=== PATIENT | male | born 1965 | race Caucasian/White ===

== ENCOUNTER 2024-10-18 17:52 | Inpatient (IN) | payer MEDICARE, OTHER ==
[~2024-10-18] VITALS: Ht 195.6 cm; Wt 158.8 kg
[~2024-10-18 17:52] MED LIST: AMLODIPINE BESY10 MG; AVAPRO300 MG; COLCRYS0.6 MG; FLOMAX0.4 MG PO; LOSARTAN POTASS25 MG PO; METHIMAZOLE5 MG PO; METOPROLOL SUCC25 MG PO; MICROZIDE12.5 MG; NEURONTIN300 MG PO; NEXIUM40 M1; TERAZOSIN HCL5 MG PO; ZYLOPRIM300 MG PO; [UNRECOGNIZED DRUG - OTHER] PO
[2024-10-18 18:44] LABS: BASOPHILS % 0.2 % (0.0-1.0); EOSINOPHILS % 0.2 % (0.0-6.0); HEMATOCRIT 41.3 % (38.2-49.6); HEMOGLOBIN 12.8 g/dL (14.0-18.0); LYMPHOCYTES # (AUTO) 1.5 (1.0-3.2); LYMPHOCYTES % 17.9 % (18.0-39.1); MEAN CORPUSCULAR HEMOGLOBIN 27.5 pg (28-32); MEAN CORPUSCULAR VOLUME 88.6 fL (81-99); MONOCYTES # (AUTO) 1.1 (0.2-0.8); NEUTROPHILS # (AUTO) 5.6 (2.1-6.9); NEUTROPHILS % 68.3 % (38.7-80.0); PLATELET COUNT 490 x10e3/uL (140-360); RED BLOOD COUNT 4.66 x10e6/uL (4.3-5.7); RED CELL DISTRIBUTION WIDTH 13.4 % (11.7-14.4)
[2024-10-18 19:02] LABS: ALANINE AMINOTRANSFERASE 48 IU/L (0-55); ALBUMIN 2.7 g/dL (3.5-5.0); ALBUMIN/GLOBULIN RATIO 0.5 (0.8-2.0); ALKALINE PHOSPHATASE 104 IU/L (40-150); ANION GAP 21.7 mmol/L (8-16); BLOOD UREA NITROGEN 9 mg/dL (7-26); BUN/CREATININE RATIO 8 (6-25); CALCIUM 10.1 mg/dL (8.4-10.2); CARBON DIOXIDE 19 mmol/L (22-29); CHLORIDE 94 mmol/L (98-107); CREATINE KINASE 27 IU/L (30-200); CREATININE, SERUM 1.11 mg/dL (0.72-1.25); EST GLOMERULAR FILTRATION RATE 76 ML/MIN (>=60); GLUCOSE 239 mg/dL (74-118); POTASSIUM 3.7 mmol/L (3.5-5.1); SODIUM 131 mmol/L (136-145); TOTAL PROTEIN 8.7 g/dL (6.5-8.1)
[2024-10-18 19:09] LABS: TROPONIN I < 0.001 ng/mL (0-0.300)
[2024-10-18] MEDS: ACETAMINOPHEN 325 MG TAB PO STA (19:17)
[2024-10-18] MEDS: SODIUM CHLORIDE 0.9% 1000ML 1,000 ML IV STA ×2 (19:17→19:18)
[2024-10-18 21:10] VITALS: PULSE 97; RESP 18; TEMP 99.1
[2024-10-18 21:21] LABS: CORONAVIRUS COVID-19 AG NEGATIVE (NEGATIVE); INFLUENZA A AG NEGATIVE (NEGATIVE); INFLUENZA B AG NEGATIVE (NEGATIVE)
[2024-10-18 21:27] LABS: STREPTOCOCCUS GRP A ANTIGEN NEGATIVE (NEGATIVE)
[2024-10-18 21:55] VITALS: BP 120/81; PULSE 92; RESP 18; TEMP 98.2; O2SAT 98
[2024-10-18 21:56] LABS: COLOR,URINE ORANGE (YELLOW); GLUCOSE, URINE 2+ (NEGATIVE); KETONES,URINE NEGATIVE (NEGATIVE); LEUKOCYTE ESTERASE ,URINE NEGATIVE (NEGATIVE); NITRITE,URINE NEGATIVE (NEGATIVE); PH,URINE 7.5 (5 - 7); PROTEIN,URINE DIPSTICK 2+ (NEGATIVE); URINE UROBILINOGEN >=8 mg/dL (0.2 - 1)
[2024-10-18 21:57] LABS: BILIRUBIN,URINE 1+ (NEGATIVE); CLARITY,URINE SL CLOUDY (CLEAR)
[2024-10-18 22:00] VITALS: BP 120/81; PULSE 92; RESP 18; TEMP 98.2; O2SAT 98
[2024-10-18 22:19] LABS: BACTERIA,URINE MODERATE /HPF; EPITHELIAL CELLS,URINE FEW /LPF; WBC,URINE (MAN) >50 /HPF (0-5)
[2024-10-18 22:20] LABS: TRANSITIONAL EPI CELLS,URINE FEW
[2024-10-18] MEDS ORDERED: GLYBURIDE-METF1 EAC1 PO (23:35)
[2024-10-18] MEDS ORDERED: COLCHICINE0.6 M1 PO (23:40)
[2024-10-18] MEDS ORDERED: MONTELUKAST SOD10 MG PO (23:42)
[2024-10-18] MEDS ORDERED: NEXIUM40 MG PO (23:46)
[2024-10-19] VITALS (12 sets, daily range): BP systolic 116–136; BP diastolic 73–82; PULSE 88–106; RESP 16–19; TEMP 97.5–98.7; O2SAT 95–99
[2024-10-19] MEDS: SODIUM CHLORIDE 0.9% 1000ML 1,000 ML IV SCH (00:41)
[2024-10-19] MEDS: ONDANSETRON HCL INJ 2MG/ML 2ML 2 MG/ML VIAL IV PRN (00:43)
[2024-10-19] MEDS: Morphine 4mg INJECTION 4 MG/ML INJ IV PRN (00:43)
[2024-10-19 07:25] LABS: BASOPHILS % 0.2 % (0.0-1.0); EOSINOPHILS % 0.1 % (0.0-6.0); HEMATOCRIT 36.5 % (38.2-49.6); HEMOGLOBIN 11.1 g/dL (14.0-18.0); LYMPHOCYTES # (AUTO) 1.3 (1.0-3.2); LYMPHOCYTES % 14.4 % (18.0-39.1); MEAN CORPUSCULAR HEMOGLOBIN 27.5 pg (28-32); MEAN CORPUSCULAR HGB CONC 30.4 g/dL (31-35); MEAN CORPUSCULAR VOLUME 90.3 fL (81-99); MONOCYTES # (AUTO) 1.1 (0.2-0.8); MONOCYTES % 12.5 % (4.4-11.3); NEUTROPHILS # (AUTO) 6.6 (2.1-6.9); NEUTROPHILS % 72.5 % (38.7-80.0); PLATELET COUNT 435 x10e3/uL (140-360); RED BLOOD COUNT 4.04 x10e6/uL (4.3-5.7); RED CELL DISTRIBUTION WIDTH 13.4 % (11.7-14.4); WHITE BLOOD COUNT 9.11 x10e3/uL (4.8-10.8)
[2024-10-19 07:41] LABS: ALBUMIN 2.3 g/dL (3.5-5.0); ALBUMIN/GLOBULIN RATIO 0.5 (0.8-2.0); ANION GAP 17.9 mmol/L (8-16); BILIRUBIN,TOTAL 2.1 mg/dL (0.2-1.2); CALCIUM 9.4 mg/dL (8.4-10.2); CREATININE, SERUM 0.94 mg/dL (0.72-1.25); POTASSIUM 3.9 mmol/L (3.5-5.1); TOTAL PROTEIN 7.3 g/dL (6.5-8.1)
[2024-10-19 07:49] LABS: TROPONIN I 0.004 ng/mL (0-0.300)
[2024-10-19 09:17] LABS: CREATINE KINASE 48 IU/L (30-200); TROPONIN I < 0.001 ng/mL (0-0.300)
[2024-10-19] MEDS: SENNA-S TABLET PO SCH (11:00)
[2024-10-19] MEDS ORDERED: HYDRALAZINE HCL 20 MG/ML VIAL IV PRN (11:00)
[2024-10-19] MEDS ORDERED: ONDANSETRON HCL INJ 2MG/ML 2ML 2 MG/ML VIAL IV PRN (11:00)
[2024-10-19] MEDS ORDERED: DEXTROSE 50% SYRINGE 50 ML IV PRN (11:15)
[2024-10-19] MEDS: INSULIN LISPRO 100 UNIT/1 ML 3ML VIAL SQ SCH (11:30)
[2024-10-19] MEDS: INSULIN GLARGINE 100 UNITS/ML VIAL SQ ONE (12:08)
[2024-10-19] MEDS: ACETAMINOPHEN 325 MG TAB PO PRN (12:35)
[2024-10-19] MEDS: Vancomycin IV 1 GM in SODIUM CHLORIDE 0.9% 250ML 250 ML IV SCH (12:36)
[2024-10-19] MEDS ORDERED: IOPAMIDOL 370 MG/ML 100 ML INFUS..BTL INJ ONE (14:50)
[2024-10-19] MEDS ORDERED: SODIUM CHLORIDE 0.9% 100 ML ONE (14:50)
[2024-10-19] MEDS: GABAPENTIN 300 MG CAP PO SCH (15:36)
[2024-10-19] MEDS: TERAZOSIN HCL 5 MG CAP PO SCH (17:09)
[2024-10-19] MEDS: ENOXAPARIN SOD INJ 40 MG/0.4 ML SYR SC SCH (17:10)
[2024-10-19] MEDS: TAMSULOSIN HCL 0.4 MG CAP PO SCH (17:10)
[2024-10-19] MEDS: METHIMAZOLE 5 MG TAB PO SCH (20:17)
[2024-10-19] MEDS: INSULIN GLARGINE 100 UNITS/ML VIAL SQ SCH (21:00)
[2024-10-20] VITALS (11 sets, daily range): BP systolic 111–127; BP diastolic 60–82; PULSE 60–98; RESP 18–22; TEMP 97.5–98.1; O2SAT 96–98
[2024-10-20 06:40] LABS: BASOPHILS % 0.3 % (0.0-1.0); EOSINOPHILS # (AUTO) 0.1 (0.0-0.4); EOSINOPHILS % 1.1 % (0.0-6.0); HEMATOCRIT 33.4 % (38.2-49.6); LYMPHOCYTES # (AUTO) 1.4 (1.0-3.2); LYMPHOCYTES % 19.8 % (18.0-39.1); MEAN CORPUSCULAR HEMOGLOBIN 27.3 pg (28-32); MEAN CORPUSCULAR HGB CONC 29.9 g/dL (31-35); MEAN CORPUSCULAR VOLUME 91.3 fL (81-99); MONOCYTES # (AUTO) 0.7 (0.2-0.8); MONOCYTES % 9.7 % (4.4-11.3); NEUTROPHILS # (AUTO) 4.8 (2.1-6.9); NEUTROPHILS % 68.7 % (38.7-80.0); PLATELET COUNT 379 x10e3/uL (140-360); RED BLOOD COUNT 3.66 x10e6/uL (4.3-5.7); RED CELL DISTRIBUTION WIDTH 13.5 % (11.7-14.4); WHITE BLOOD COUNT 7.03 x10e3/uL (4.8-10.8)
[2024-10-20 07:17] LABS: ALBUMIN 2.1 g/dL (3.5-5.0); ALBUMIN/GLOBULIN RATIO 0.4 (0.8-2.0); ANION GAP 15.6 mmol/L (8-16); BILIRUBIN,TOTAL 1.4 mg/dL (0.2-1.2); CALCIUM 9.4 mg/dL (8.4-10.2); CREATININE, SERUM 0.85 mg/dL (0.72-1.25); POTASSIUM 3.6 mmol/L (3.5-5.1); TOTAL PROTEIN 6.9 g/dL (6.5-8.1)
[2024-10-20 07:36] LABS: THYROID STIMULATING HORMONE 0.004 uIU/mL (0.350-4.940)
[2024-10-20] MEDS: COLCHICINE 0.6 MG TAB PO SCH (08:55)
[2024-10-20] MEDS: PANTOPRAZOLE SOD 40 MG TABEC PO SCH (08:56)
[2024-10-20] MEDS: LOSARTAN POTASSIUM 25 MG TAB PO SCH (08:56)
[2024-10-20] MEDS: ALLOPURINOL 300 MG TAB PO SCH (08:56)
[2024-10-20] MEDS: MONTELUKAST SODIUM 10 MG TAB PO SCH (08:56)
[2024-10-20] MEDS: METOPROLOL SUCCINATE 25 MG TAB XL PO SCH (08:58)
[2024-10-20] MEDS: HYDROCODONE/APAP 10MG-325MG TAB PO PRN (23:16)
[2024-10-21] VITALS (10 sets, daily range): BP systolic 96–114; BP diastolic 56–75; PULSE 77–99; RESP 18–22; TEMP 97.7–98.4; O2SAT 96–100
[2024-10-21] MEDS: SODIUM CHLORIDE 0.9% 250ML 250 ML ONE (07:58)
[2024-10-21] MEDS: LIDOCAINE HCL 1% 2 ML AMP INJ ONE (17:31)
[2024-10-22] VITALS (10 sets, daily range): BP systolic 119–132; BP diastolic 71–77; PULSE 75–96; RESP 18–22; TEMP 97.7–98.2; O2SAT 94–98
[2024-10-22 08:57] LABS: BASOPHILS % 0.5 % (0.0-1.0); EOSINOPHILS # (AUTO) 0.1 (0.0-0.4); EOSINOPHILS % 2.3 % (0.0-6.0); HEMATOCRIT 32.4 % (38.2-49.6); HEMOGLOBIN 9.6 g/dL (14.0-18.0); LYMPHOCYTES # (AUTO) 1.1 (1.0-3.2); LYMPHOCYTES % 24.3 % (18.0-39.1); MEAN CORPUSCULAR HEMOGLOBIN 26.9 pg (28-32); MEAN CORPUSCULAR HGB CONC 29.6 g/dL (31-35); MEAN CORPUSCULAR VOLUME 90.8 fL (81-99); MONOCYTES # (AUTO) 0.5 (0.2-0.8); NEUTROPHILS # (AUTO) 2.7 (2.1-6.9); NEUTROPHILS % 61.7 % (38.7-80.0); PLATELET COUNT 373 x10e3/uL (140-360); RED BLOOD COUNT 3.57 x10e6/uL (4.3-5.7); RED CELL DISTRIBUTION WIDTH 13.7 % (11.7-14.4); WHITE BLOOD COUNT 4.36 x10e3/uL (4.8-10.8)
[2024-10-22 09:24] LABS: ANION GAP 14.6 mmol/L (8-16); CALCIUM 9.2 mg/dL (8.4-10.2); CREATININE, SERUM 0.78 mg/dL (0.72-1.25); POTASSIUM 3.6 mmol/L (3.5-5.1)
[2024-10-23] VITALS (10 sets, daily range): BP systolic 113–136; BP diastolic 60–85; PULSE 72–90; RESP 18–20; TEMP 97.2–98.6; O2SAT 95–98
[2024-10-23 05:40] LABS: BASOPHILS % 0.2 % (0.0-1.0); EOSINOPHILS # (AUTO) 0.2 (0.0-0.4); EOSINOPHILS % 3.4 % (0.0-6.0); HEMATOCRIT 32.9 % (38.2-49.6); HEMOGLOBIN 10.5 g/dL (14.0-18.0); LYMPHOCYTES # (AUTO) 1.1 (1.0-3.2); LYMPHOCYTES % 23.4 % (18.0-39.1); MEAN CORPUSCULAR HEMOGLOBIN 27.3 pg (28-32); MEAN CORPUSCULAR HGB CONC 31.9 g/dL (31-35); MEAN CORPUSCULAR VOLUME 85.5 fL (81-99); MONOCYTES # (AUTO) 0.6 (0.2-0.8); MONOCYTES % 12.4 % (4.4-11.3); NEUTROPHILS # (AUTO) 2.9 (2.1-6.9); NEUTROPHILS % 60.4 % (38.7-80.0); PLATELET COUNT 370 x10e3/uL (140-360); RED BLOOD COUNT 3.85 x10e6/uL (4.3-5.7); RED CELL DISTRIBUTION WIDTH 13.6 % (11.7-14.4); WHITE BLOOD COUNT 4.75 x10e3/uL (4.8-10.8)
[2024-10-23 05:58] LABS: ANION GAP 14.4 mmol/L (8-16); CALCIUM 9.2 mg/dL (8.4-10.2); CREATININE, SERUM 0.74 mg/dL (0.72-1.25)
[2024-10-23 05:59] LABS: POTASSIUM 3.4 mmol/L (3.5-5.1)
[2024-10-23] MEDS ORDERED: PROPOFOL IV EMULSION 10 MG/ML 20 ML VIAL ONE ×2 (07:03→07:48)
[2024-10-23] MEDS ORDERED: LIDOCAINE HCL 2% LOCAL INJ 5 ML SDV VIAL INJ ONE (07:03)
[2024-10-23] MEDS ORDERED: FENTANYL CITRATE/PF 100MCG/2 ML INJ ONE ×2 (07:03→07:55)
[2024-10-23] MEDS ORDERED: Vancomycin IV 1 GM VIAL ONE (07:50)
[2024-10-23] MEDS ORDERED: DEXAMETHASONE SOD PHOS INJ 4 MG/ML SDV ONE (08:05)
[2024-10-23] MEDS ORDERED: ONDANSETRON HCL INJ 2MG/ML 2ML 2 MG/ML VIAL ONE (08:05)
[2024-10-24] VITALS (9 sets, daily range): BP systolic 116–133; BP diastolic 71–84; PULSE 71–82; RESP 18–20; TEMP 97.3–97.7; O2SAT 94–98
[2024-10-24] MEDS: CEFTRIAXONE 2 GM in SODIUM CHLORIDE 0.9% 100 ML IV SCH (16:45)
[2024-10-24] MEDS: SODIUM CHLORIDE 0.9% 250ML 250 ML ONE (16:45)
[2024-10-25] VITALS (10 sets, daily range): BP systolic 121–133; BP diastolic 66–92; PULSE 67–87; RESP 16–20; TEMP 97.5–98.4; O2SAT 95–97
[2024-10-25] MEDS: VANCOMYCIN 1.25GM/250 ML (PEG) 250 ML IV SCH (15:11)
[2024-10-26] VITALS (10 sets, daily range): BP systolic 115–133; BP diastolic 73–89; PULSE 75–87; RESP 17–20; TEMP 97.7–98; O2SAT 96–98
[2024-10-26] MEDS: VANCOMYCIN 1.25GM/250 ML (PEG) 250 ML IV SCH (04:49)
[2024-10-26] MEDS: HYDROCODONE/APAP 10MG-325MG TAB PO PRN (15:41)
[2024-10-26] MEDS ORDERED: VANCOMYCIN 1.25GM/250 ML (PEG) 250 ML IV SCH (17:00)
[2024-10-26] MEDS: ENOXAPARIN SOD INJ 40 MG/0.4 ML SYR SC SCH (17:00)
[2024-10-26] MEDS ORDERED: SODIUM CHLORIDE 0.9% 0 ML ONE (21:24)
[2024-10-27] VITALS (9 sets, daily range): BP systolic 108–156; BP diastolic 52–73; PULSE 72–84; RESP 16–19; TEMP 97.4–98.8; O2SAT 92–97
[2024-10-27 06:29] LABS: BASOPHILS % 0.4 % (0.0-1.0); EOSINOPHILS # (AUTO) 0.2 (0.0-0.4); EOSINOPHILS % 3.6 % (0.0-6.0); HEMATOCRIT 32.9 % (38.2-49.6); HEMOGLOBIN 10.3 g/dL (14.0-18.0); LYMPHOCYTES # (AUTO) 1.8 (1.0-3.2); LYMPHOCYTES % 31.9 % (18.0-39.1); MEAN CORPUSCULAR HEMOGLOBIN 26.8 pg (28-32); MEAN CORPUSCULAR HGB CONC 31.3 g/dL (31-35); MEAN CORPUSCULAR VOLUME 85.5 fL (81-99); MONOCYTES # (AUTO) 0.7 (0.2-0.8); MONOCYTES % 12.6 % (4.4-11.3); NEUTROPHILS # (AUTO) 2.8 (2.1-6.9); PLATELET COUNT 365 x10e3/uL (140-360); RED BLOOD COUNT 3.85 x10e6/uL (4.3-5.7); RED CELL DISTRIBUTION WIDTH 14.1 % (11.7-14.4); WHITE BLOOD COUNT 5.48 x10e3/uL (4.8-10.8)
[2024-10-27 06:55] LABS: ANION GAP 15.8 mmol/L (8-16); CALCIUM 9.2 mg/dL (8.4-10.2); CREATININE, SERUM 0.78 mg/dL (0.72-1.25); POTASSIUM 3.8 mmol/L (3.5-5.1)
[2024-10-27] MEDS: COLCHICINE 0.6 MG TAB PO SCH (08:15)
[2024-10-27 13:09] LABS: RHEUMATOID FACTOR 18.5 IU/mL (<14.0)
[2024-10-27 18:07] LABS: CYCLIC CITRULLINATED PEPTID AB 4 units (0-19)
[2024-10-27] MEDS ORDERED: SODIUM CHLORIDE 0.9% 100 ML ONE (22:58)
[2024-10-28] VITALS (9 sets, daily range): BP systolic 105–125; BP diastolic 63–79; PULSE 78–94; RESP 18–21; TEMP 97.2–98.5; O2SAT 94–98
[2024-10-28] MEDS: CEFAZOLIN SODIUM 2 GM in SODIUM CHLORIDE 0.9% 100 ML IV SCH (16:27)
[2024-10-29] VITALS (10 sets, daily range): BP systolic 98–139; BP diastolic 64–80; PULSE 77–88; RESP 17–18; TEMP 97.4–98.4; O2SAT 94–98
[2024-10-30 00:28] VITALS: BP 115/74; PULSE 90; RESP 19; TEMP 98.3; O2SAT 98
[2024-10-30 05:26] VITALS: BP 109/73; PULSE 87; RESP 18; TEMP 98.2; O2SAT 95
[2024-10-30 06:13] VITALS: PULSE 78; RESP 22; O2SAT 96
[2024-10-30 07:52] VITALS: BP 119/70; PULSE 92; RESP 17; TEMP 97.9; O2SAT 96
[2024-10-30 09:00] VITALS: BP 119/70; PULSE 92; RESP 17; TEMP 97.9; O2SAT 96
[2024-10-30 10:55] VITALS: BP 123/74; PULSE 64; RESP 19; TEMP 97.4; O2SAT 99
[2024-10-30] MEDS ORDERED: CEFAZOLIN SODI500 MG IV (11:56)
== END 2024-10-30 12:55 | disposition home health service (06) | DRG 854 ==
LOC: ER 17:57 → ERHOLD 19:39 → MED/SURG3 20:01
PROVIDERS: ADMIT Internal Medicine; ATTEND Internal Medicine
PROC: 3E0333Z Introduction of Anti-inflammatory into Peripheral Vein, Percutaneous Approach (ICD-10-PCS; 2024-10-18)
PROC: 0S9F3ZX Drainage of Right Ankle Joint, Percutaneous Approach, Diagnostic (ICD-10-PCS; 2024-10-21)
PROC: 0JBQ0ZZ Excision of Right Foot Subcutaneous Tissue and Fascia, Open Approach (ICD-10-PCS; 2024-10-21)
PROC: 0QCL0ZZ Extirpation of Matter from Right Tarsal, Open Approach (ICD-10-PCS; principal; 2024-10-24)
PROC: 02H633Z Insertion of Infusion Device into Right Atrium, Percutaneous Approach (ICD-10-PCS; 2024-10-26)
DX: A41.01 Sepsis due to Methicillin susceptible Staphylococcus aureus (principal); E87.20 Acidosis, unspecified; N39.0 Urinary tract infection, site not specified; Z68.41 Body mass index [BMI] 40.0-44.9, adult; L97.518 Non-pressure chronic ulcer of other part of right foot with other specified severity; M86.9 Osteomyelitis, unspecified; I76 Septic arterial embolism; M00.071 Staphylococcal arthritis, right ankle and foot; S92.001A Unspecified fracture of right calcaneus, initial encounter for closed fracture; R65.20 Severe sepsis without septic shock; E11.621 Type 2 diabetes mellitus with foot ulcer; E11.42 Type 2 diabetes mellitus with diabetic polyneuropathy; E11.69 Type 2 diabetes mellitus with other specified complication; E11.51 Type 2 diabetes mellitus with diabetic peripheral angiopathy without gangrene; L97.519 Non-pressure chronic ulcer of other part of right foot with unspecified severity; E66.01 Morbid (severe) obesity due to excess calories; N41.9 Inflammatory disease of prostate, unspecified; Z11.52 Encounter for screening for COVID-19; R53.81 Other malaise; M15.9 Polyosteoarthritis, unspecified; M25.471 Effusion, right ankle; X58.XXXA Exposure to other specified factors, initial encounter; M25.462 Effusion, left knee; G47.33 Obstructive sleep apnea (adult) (pediatric); M10.9 Gout, unspecified; R26.2 Difficulty in walking, not elsewhere classified; Z79.84 Long term (current) use of oral hypoglycemic drugs
CPT/HCPCS: 36415; 36569; 71045; 80048; 80053; 80202; 81001; 82550; 82948; 83036; 83518; 83605; 83690; 83880; 84443; 84484; 84550; 85025; 86039; 86140; 86200; 86431; 87040; 87070; 87071; 87075; 87086; 87186; 87205; 88112; 88305; 88307; 88311; 93005; 94660; 94799; 99252; 99285; J0690; J0696; J1100; J1650; J1815; J2003; J2270; J2405; J2543; J7030; J7050; Q9967

== ENCOUNTER 2024-11-01 15:09 | Emergency (ER) | payer MEDICARE ==
[~2024-11-01] VITALS: Ht 195.6 cm; Wt 158.8 kg
[~2024-11-01 15:09] MED LIST changes: +CEFAZOLIN SODI500 MG IV; +COLCHICINE0.6 M1 PO; +GLYBURIDE-METF1 EAC1 PO; +MONTELUKAST SOD10 MG PO; +NEXIUM40 MG PO
[2024-11-01 15:40] VITALS: PULSE 103; RESP 16; TEMP 98; O2SAT 98
== END 2024-11-01 15:58 | disposition home or self-care (01) ==
LOC: ER 15:56
DX: Z45.2 Encounter for adjustment and management of vascular access device (principal); T82.594A Other mechanical complication of infusion catheter, initial encounter; I10 Essential (primary) hypertension; E11.9 Type 2 diabetes mellitus without complications; M10.9 Gout, unspecified
CPT/HCPCS: 99283